=== PATIENT | female | born 1965 | race Caucasian/White ===

== ENCOUNTER 2019-05-17 07:49 | Emergency (ER) | payer MEDICARE, MEDICAID ==
[~2019-05-17] VITALS: Ht 165.1 cm; Wt 86.4 kg
[~2019-05-17 07:49] MED LIST: ACET-2119 PO; CHOL100046 PO; HYDR50CA5 PO; METH500T6 PO; MULT-1085 PO; NAPR-1154 PO; TRAZ-219 PO; VENL-190 PO; [UNRECOGNIZED DRUG - CODE] PO
[2019-05-17] MEDS ORDERED: ketorolac trometh. 30mg/ml inj. IV ONE (08:15)
[2019-05-17] MEDS ORDERED: NAPR-56 PO (08:24)
[2019-05-17] MEDS ORDERED: TRAM50TA2 PO (08:24)
[2019-05-17] MEDS ORDERED: HYDROcodone/acetaminophen 5mg/325mg tablet PO ONE (08:50)
[2019-05-17 09:01] VITALS: BP 110/54
== END 2019-05-17 09:03 | disposition home or self-care (01) ==
LOC: ER 07:50
DX: M25.512 Pain in left shoulder (principal); K21.9 Gastro-esophageal reflux disease without esophagitis; F41.9 Anxiety disorder, unspecified; F32.9 Major depressive disorder, single episode, unspecified; Z90.710 Acquired absence of both cervix and uterus; Z88.8 Allergy status to other drugs, medicaments and biological substances; Z79.899 Other long term (current) drug therapy
CPT/HCPCS: 73030; 96374; 99283; J1885